=== PATIENT | male | born 1965 | race Asian ===

== ENCOUNTER 2016-10-23 10:35 | Emergency (ER) | payer OTHER ==
[~2016-10-23] VITALS: Ht 175.3 cm; Wt 77.1 kg
== END 2016-10-23 11:40 ==
LOC: ED 10:35
DX: F20.89 Other schizophrenia (principal)
CPT/HCPCS: 99285; J3486

== ENCOUNTER 2017-03-22 23:12 | Outpatient (CLI) | payer OTHER | END 2017-03-22 23:15 | disposition short-term general hospital (02) | LOC: AMB 23:12 | DX: R44.2 Other hallucinations (principal); Z59.0 Homelessness | CPT/HCPCS: A0425; A0429 ==

== ENCOUNTER 2017-03-22 23:19 | Emergency (ER) | payer OTHER ==
[~2017-03-22] VITALS: Ht 177.8 cm; Wt 81.6 kg
[2017-03-23 02:35] LABS: PLATELET COUNT 205 K/uL (142-355)
[2017-03-23 02:43] LABS: POTASSIUM 3.8 mmol/L (3.6-5.2); SODIUM 138 mmol/L (136-145)
== END 2017-03-23 09:45 | disposition home or self-care (01) ==
LOC: ED 23:19
PROVIDERS: Specialist
DX: F19.10 Other psychoactive substance abuse, uncomplicated (principal); F20.0 Paranoid schizophrenia
CPT/HCPCS: 80053; 80307; 85027; 96372; 99283; J1630